=== PATIENT | female | born 1960 | race Two or more races ===

== ENCOUNTER 2022-08-16 20:45 | Emergency (ER) | payer OTHER ==
[~2022-08-16] VITALS: Ht 165.1 cm; Wt 65.7 kg
[~2022-08-16 20:45] MED LIST: ALBU17AE27 IH
[2022-08-16] MEDS: PERTUSS(ACELL),DIPH,TET VAC/PF 0.5 ML SYRINGE IM. ONE (22:57)
[2022-08-17 01:18] VITALS: BP 132/77
[2022-08-17] MEDS: IBUPROFEN 600 MG TABLET PO ONE (01:30)
== END 2022-08-17 01:35 | disposition home or self-care (01) ==
LOC: EMS 20:45
DX: S09.8XXA Other specified injuries of head, initial encounter (principal); S01.01XA Laceration without foreign body of scalp, initial encounter; M25.512 Pain in left shoulder; E11.9 Type 2 diabetes mellitus without complications; E78.00 Pure hypercholesterolemia, unspecified; I10 Essential (primary) hypertension; W19.XXXA Unspecified fall, initial encounter; Y93.89 Activity, other specified; Y92.89 Other specified places as the place of occurrence of the external cause; Y99.8 Other external cause status
CPT/HCPCS: 12002; 90471; 90715; 99283